=== PATIENT | male | born 1985 | race Caucasian/White ===

== ENCOUNTER 2024-12-20 11:00 | Emergency (ER) | payer BC, SELFPAY ==
--- OUTSIDE RECORDS SUMMARY | 2024-12-20 11:06 | XMS_ITS | Continuity of Care Document ---
Demographics Address [address] [place] [id number] Work Phone Mobile Phone Home Phone Email Address m Preferred Language en Marital Status Restoration Affiliation Unknown Race White Ethnic Group or Author Organization [facility] Address [address] [place] [address] Phone Care Team Providers Care Senior Credit Analyst Name Role Phone Jeremie Griffith OD Unavailable Unavailable Allergies, Adverse Reactions, Alerts Substance Reaction Status Criticality No Known allergies Procedures Procedure Date Eye Exam, New Patient Refraction Eye Exam & Treatment Office/outpatient Visit, Est Office/outpatient Visit, New Advance Directives Directive Yes / No Effective Date File Name Resuscitation Not Answered N/A N/A Life Support Not Answered N/A N/A Intubation Not Answered N/A N/A Antibiotics Not Answered N/A N/A IV Fluid Support Not Answered N/A N/A Tube Feed Not Answered N/A N/A Other Directive N/A N/A WARNING:The information contained in this section is historical and is provided for information only and does not constitute a legal document or any assurance that the information is still accurate. Please verify the information with the mendoza of the legal document before using it for clinical purposes. Encounters Encounter Description Practice Location Reason(s) For Visit Diagnoses Date Provider Providers Copied on Encounter [facility], [address] [place] [address] [address], [place], [place], [id number], [place] tel:[phone] SEC Emil Veliz MYOPIAAMBLYOPIA NOS 1-201 4 Gladis Chao. [address] [facility], [address], [place], [place], [id number] , [place]. tel:[phone] Office/outpat ient Visit, [facility] [place], [address], [place], [place], [id number], tel: [phone] SEC Alan Boswell FB IN [address] Shabbir Dangelo. [address], [address], [place], [address], . tel: [phone] Office/outpat ient Visit, [facility] [place] [place], [address], [place], [place], [id number], tel: [phone] SEC Emil Veliz FB [address] Shabbir Dangelo. [address], [address], [place], [address], . tel: [phone] Family History Family Member Type Diagnosis Age At Onset No Information Payers Payer name Insurance type Covered democrat ID Authortristona danielito(s) [facility] [id number] Social History Type Description Quantity Date Captured Comments Alcohol Use Details Caffeine Use Details Tobacco Use Status No Information Smoking Status Never smoker Sex Male Chief Complaint And Reason For Visit No Information Reason For Referral Reason For Referral No Information History Of Present Illness Encounter Date Complaint History Of Prese nt Illness No Information Functional Status Date Functional Assessmen t No Information Instructions Date Instruction Additional Infor kaden - Return in 1 year Related to Se e impression: general plan General plan -MYOPIA -Amblyopia OD congenital ptosis OD - Advised to wear glasses with impact resistant lenses for protection.Given spec Rx Related to See impression: general plan - RTC as needed Related to See i mpression: general plan General plan -Foreig n body in the conjunctiva - No FB seen in conj. Discontinue gtts. BCL removed today. RTC as needed. Educational materials provided:about today's exam. Related to See impression: general plan - RTC in 1 day if no t better or Saturday for f/u. Related to See impression: general plan General plan -Foreig n body in the conjunctiva - Vertical eyelid scratches with FB. Left lid eversion - small particles. Double left lid eversion with DeMaris. Eye washed. Fornices superior swept with q-tip. BCL applied. Pt will begin using Polytrim 2-3 xs per day. RTC in 1 day if not better or Saturday for f/u. Educational materials provided:about today's exam. Related to See impression: general plan Assessments Type Assessment Date No Information Patient Care Teams Name Effective Dates (start - stop) Status Members No Information
--- OUTSIDE RECORDS SUMMARY | 2024-12-20 11:06 | XMS_ITS | Encounter Summary ---
Author Organization [facility] Address [address] [place] [address] Care Team Providers Care Pugger Helper Name Role Phone Gamaliel Monroy MD Primary Care Provider [phone] Encounter Details Date Type Department Care Team (Late st Contact Info) Description 12/01/2024 Results Follow-Up [facility] [address] [place] [address] Sandra Cardoza, MEDICAL GENETICIST [address] [place] [address] Hepatitis C antibody Blood, Hepatitis B surface antibody (immune status) Blood, Hepatitis B core antibody, total Blood, Additional followed-up results: 8 Social History Tobacco Use Types Packs/Day Years Used Date Smoking Tobacco: Never Smokeless Tobacco: Never Alcohol Use Standard Drinks/Week Comments Not Currently 0 (1 standard drink = 0.6 oz pur e alcohol) AUDIT-C Answer Date Recorded Q1: How often do you have a drink containing alc ohol? Monthly or less 03/05/2024 Q2: How many drinks containi ng alcohol do you have on a typical day when you are drinking? 1 or 2 03/05/2024 Q3: How often do you have si x or more drinks on one occasion? 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
--- OUTSIDE RECORDS SUMMARY | 2024-12-20 11:06 | XMS_ITS | Clinical Summary ---
[place] [facility] [place] [address] [facility] [place]to Address [address] [place] [address] Care Team Providers Care Vp Data Name Role Phone Gamaliel Monroy MD Primary Care Provider [phone] Allergies No known active allergies Medications triamcinolone (KENALOG) 0.1 % creamIndication s:Contact dermatitis due to poison shivani Apply topically 3 (three) times a day for 10 days 80 g 4 Active montelukast (SINGULAIR) 10 mg tabletIndicatio ns:Seasonal Allergic Rhinitis Take 1 tablet (10 mg total) by mouth nightly 90 tablet 1 4 03/24/20 25 Active acetaminophen (TYLENOL) 325 mg tablet Take 1 tablet (325 mg total) by mouth every 6 (six) hours as needed for pain Active gabapentin (NEURONTIN) 100 mg capsule Take 1 capsule (100 mg total) by mouth 3 (three) times a day 90 capsule 1 4 05/29/[address] (VOLTAREN) 75 mg EC tablet Take 1 tablet (75 mg total) by mouth 2 (two) times a day 60 tablet 1 4 05/29/20 25 Active tiZANidine (ZANAFLEX) 4 mg tablet Take 1 tablet (4 mg total) by mouth nightly as needed for muscle spasms 30 tablet 1 4 Active Active Problems Problem Noted Date Diagnosed Date Annual physical exam 11/25/2024 Assessment & Plan (11/25/2024 3:52 PM CDT): Visit preventive in nature. Eat a healthy diet: focus on lean meats and proteins, more fruits, vegetables and whole grains and low in sugars and fats. Limit red meat and avoid processed meat. Maintain a healthy weight; avoid being overweight. Aim for a normal body mass index (BMI) of 18.5-24.9. Help learning to eat healthier, we can set up appointment with assistant prosecuting attorney/display specialist. Have an active lifestyle, strive for 30 minutes of moderate exercise 5 times a week and strength or resistance training at least twice a week. Use broad-spectrum (UVA+UVB) sunscreen with SPF 30 or greater, is water resistant, limit time spent in the sun (10 am-4pm), wear hat, wear UV protective clothing, wear sunglasses. Never use a tanning bed. Skin that was irradiated may be more sensitive over your lifetime. Do not smoke or chew tobacco; participate in a smoking cessation program. Limit alcohol intake, 1 drink per day for a woman and 2 drinks per day for a man. Abnormal MRI 03/03/2024 Assessment & Plan (03/03/2024 12:24 PM CDT): Will have follow-up brain MRI to monitor stability assist. Consider referral to Neurology p.r.n.. Muscle strain 02/17/2024 Assessment & Plan (03/03/2024 12:22 PM CDT): Failing conservative measures. Recommend evaluation with urban redevelopment specialist. He is agreeable. Referral placed. Assessment & Plan (02/17/2024 1:35 PM CDT): Recommended continued stretching and [id number] exercises. Prescribed muscle relaxer, review medication scheduling side effects. Given the patient has concurrent poison shivani will prescribe prednisone taper. Denies any significant back pain, no bowel/ bladder disturbance. Patient to follow-up if no improvement. Seasonal allergic rhinitis due to pollen 022 Assessment & Plan (01/18/2022 5:12 PM CDT): Recommended patient use sinus irrigation and antihistamine nightly. May continue montelukast for now. Will notify if symptoms worsen or headaches occur with increased frequency. Will continue to monitor. Refused influenza vaccine 01/18/2022 Class 2 obesity due to exces s calories without serious comorbidity with body mass index (BMI) of 36.0 to 36.9 in adult 01/18/2022 Assessment & Plan (02/17/2024 1:36 PM CDT): Discussed healthy diet and importance of regular physical activity. Assessment & Plan (01/18/2022 5:12 PM CDT): Discussed healthy diet and importance of regular physical activity. Encounter for screening for lipid disorder 01/18 Assessment & Plan (02/17/2024 1:36 PM CDT): Will check cholesterol panel with labs. Assessment & Plan (01/18/2022 5:12 PM CDT): Will check fasting labs. Reviewed diet and exercise recommendations for healthy cholesterol. Contact dermatitis due to poison shivani 01/19/2019 Assessment & Plan (02/17/2024 1:35 PM CDT): Encouraged patient to wash items that may have come into contact with plan oils. Complete prednisone as prescribed, can use topical triamcinolone cream for itching. Resolved Problems Problem Noted Date Diagnosed Date Resolved Date Obesity (BMI 30-39.9) 01/19/20192021 Pharyngitis 08/20/2014 01/19/2019 Overview (10/11/2016): Pharyngitis Encounters Date Type Department Care Team Description 12/01/2024 Results Follow-Up [facility] [address] [place] [address] Sandra Cardoza, WASH TEST CHECKER Hepatitis C antibody Blood, Hepatitis B surface antibody (immune status) Blood, Hepatitis B core antibody, total Blood, Additional followed-up results: 8 11/25/2024 4:00 PM CDT Lab [facility] [address] [place] [address] Class 2 severe obesity due to excess calories with serious comorbidity and body mass index (BMI) of 37.0 to 37.9 in adult (HCC); Encounter for hepatitis C screening test for low risk patient; Need for hepatitis B screening test; Annual physical exam 11/25/2024 3:30 PM CDT [facility] [address] [address] Sandra Cardoza NP Annual physical exam (Primary Dx); Class 2 severe obesity due to excess calories with serious comorbidity and body mass index (BMI) of 37.0 to 37.9 in adult (HCC); Encounter for hepatitis C screening test for low risk patient; Need for hepatitis B screening test from Last 3 Months Immunizations Immunization Administration Dates Next Due Influenza, Unspecified 11/25/2024(Deferr ed: Patient Refused),11/25/2024(Deferred: Patient Refused),02/17/2024(Deferred: Patient Refused),04/07/2023(Deferred: Patient Refused),04/07/2023(Deferred: Patient Refused),04/07/2023(Deferred: Patient Refused),05/09/2022(Deferred: Patient Refused),04/07/2022(Deferred: Patient Refused),04/07/2021(Deferred: Patient Refused),04/07/2021(Deferred: Patient Refused),10/04/2020(Deferred: Patient Refused),07/20/2020(Deferred: Patient Refused),07/08/2020(Deferred: Patient Refused),07/08/2019(Deferred: Patient Refused),07/08/2019(Deferred: Patient Refused),07/08/2019(Deferred: Patient Refused),07/08/2019(Deferred: Patient Refused),07/08/2018(Deferred: Patient Refused) Pfizer SARS-CoV-2 Monovalent Vaccination (12+ Yrs) PURPLE 02/01/2021,12/29/2020 Tdap 01/19/2019 Surgical History Surgery Date Site/Laterality Comments OTHER SURGICAL HISTORY mole removed from neck GALLBLADDER SURGERY 07/08/2011 - 07/07/2012 CHOLECYSTECTOMY 2014? Medical History Medical History Date Comments Hx Other Medical cellulitis Contact dermatitis due to poison shivani 01/19/2019 GERD (gastroesophageal reflux disease) 2004 Sleep apnea Soon Family History Medical History Relation Name Comments ALS Father alice cause of Heart disease Father alice Hyperlipidemia Father alice Hyperlipidemi a; Hypertension Father alice Hypertension; Hypothyroidism Father alice Heart disease Father's Sister Breast cancer Mother Cancer Mother Hyperlipidemia Other 1 Family histor y of Hyperlipidemia; Hypertension Other 2 Family history of Hypertension; Relation Name Status Comments Father alice Father's Sister Mother Alive Other 1 Other 2 Sister Alive Social History Tobacco Use Types Packs/Day Years Used Date Smoking Tobacco: Never Smokeless Tobacco: Never Tobacco Cessation:Counseling Given: No Alcohol Use Standard Drinks/Week Comments Not Currently [...] on file 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 Gender Identity Not on file Sexual Orientation Not on file Occupation Industry Job Start Date Job End Date [employer] Not on file Not on file Not on ness e Obstetrics History Last Filed Vital Signs Vital Sign Reading Time Taken Comments Blood Pressure 112/80 11/25/2024 3:25 PM CDT Pulse 86 11/25/2024 3:25 PM CDT Temperature 36.8 C (98.2 F) 11/25/2024 3:25 PM CDT Respiratory Rate 18 11/25/2024 3:25 PM CDT Oxygen Saturation 98% 11/25/2024 3:25 PM CDT Inhaled Oxygen Concentration - - Weight 117.8 kg (259 lb 12.8 oz) 11/25/2024 3:25 PM CDT Height 177.8 cm (5' 10) 11/25/2024 3:25 PM CDT Body Mass Index 37.28 11/25/2024 3:25 PM CDT Plan of Treatment Health Maintenance Due Date Last Done Comments Covid-19 Vaccine ( season) 2024 02/01/2021, 12/29/2020 Influenza Vaccine (Season Ended) 2025 Depression Screening 11/25/2025 11/25/2024, 02/17/2024, 05/09/2022, Additional history exists Regular Well Visit/Exam 18-64 11/25/2025 11/25/2024, 01/24/2021, 01/26/2020, Additional history exists DTaP/Tdap/Td Vaccine (2 - Td or Tdap) 01/19/2029 01/19/2019 Hepatitis B Screening Completed 11/25/2024 Hepatitis C Screening Completed 11/25/2024 HPV Vaccines Aged Out No longer eligi ble based on patient's age to complete this topic Pneumococcal vaccine <65 Aged Out No longer eligible based on patient's age to complete this topic Varicella Vaccines Discontinued Procedures Procedure Name Priority Date/Time Associated Diagnosis Comments DIFFERENTIAL AUTO Routine 11/25/2024 8:1 7 PM CDT Class 2 severe obesity due to excess calories with serious comorbidity and body mass index (BMI) of 37.0 to 37.9 in adult (HCC) Encounter for hepatitis C screening test for low risk patient Need for hepatitis B screening test Annual physical exam CBC WITH AUTO DIFFERENTIAL Routine 11/25/2024 8:17 PM CDT Class 2 severe obesity due to excess calories with serious comorbidity and body mass index (BMI) of 37.0 to 37.9 in adult (HCC) Encounter for hepatitis C screening test for low risk patient Need for hepatitis B screening test Annual physical exam EGFR Routine 11/25/2024 3:57 PM CDT Class 2 severe obesity due to excess calories with serious comorbidity and body mass index (BMI) of 37.0 to 37.9 in adult (HCC) Encounter for hepatitis C screening test for low risk patient Need for hepatitis B screening test Annual physical exam COMPREHENSIVE METABOLIC PANEL Routine 11/25/2024 3:57 PM CDT Class 2 severe obesity due to excess calories with serious comorbidity and body mass index (BMI) of 37.0 to 37.9 in adult (HCC) Encounter for hepatitis C screening test for low risk patient Need for hepatitis B screening test Annual physical exam LIPID PANEL Routine 11/25/2024 3:57 PM CDT Class 2 severe obesity due to excess calories with serious comorbidity and body mass index (BMI) of 37.0 to 37.9 in adult (HCC) Encounter for hepatitis C screening test for low risk patient Need for hepatitis B screening test Annual physical exam THYROID FUNCTION CASCADE Routine 11/25/2024 3:57 PM CDT Class 2 severe obesity due to excess calories with serious comorbidity and body mass index (BMI) of 37.0 to 37.9 in adult (HCC) Encounter for hepatitis C screening test for low risk patient Need for hepatitis B screening test Annual physical exam HEMOGLOBIN A1C Routine 11/25/2024 3:57 PM CDT Class 2 severe obesity due to excess calories with serious comorbidity and body mass index (BMI) of 37.0 to 37.9 in adult (HCC) Encounter for hepatitis C screening test for low risk patient Need for hepatitis B screening test Annual physical exam HEPATITIS B SURFACE ANTIGEN Routine 11/25/2024 3:57 PM CDT Class 2 severe obesity due to excess calories with serious comorbidity and body mass index (BMI) of 37.0 to 37.9 in adult (HCC) Encounter for hepatitis C screening test for low risk patient Need for hepatitis B screening test Annual physical exam HEPATITIS B CORE ANTIBODY, TOTAL Routine 11/25/2024 3:57 PM CDT Class 2 severe obesity due to excess calories with serious comorbidity and body mass index (BMI) of 37.0 to 37.9 in adult (HCC) Encounter for hepatitis C screening test for low risk patient Need for hepatitis B screening test Annual physical exam HEPATITIS B SURFACE ANTIBODY (IMMUNE STATUS) Routine 11/25/2024 3:57 PM CDT Class 2 severe obesity due to excess calories with serious comorbidity and body mass index (BMI) of 37.0 to 37.9 in adult (HCC) Encounter for hepatitis C screening test for low risk patient Need for hepatitis B screening test Annual physical exam HEPATITIS C ANTIBODY Routine 11/25/2024 3:57 PM CDT Class 2 severe obesity due to excess calories with serious comorbidity and body mass index (BMI) of 37.0 to 37.9 in adult (HCC) Encounter for hepatitis C screening test for low risk patient Need for hepatitis B screening test Annual physical exam from Last 3 Months Results * Differential, auto (11/25/2024 8:17 PM CDT) Neutrophil abs 3.24 1.50 - 6.50 K/cumm Comment:Testing performed by : [address], [address] Imm gran abs 0.03 0.00 - 0.10 K/cumm [facility] ([place]) Comment:Testing performed by : [address], [address] Lymphocyte abs 2.54 0.80 - 3.30 K/cumm [facility] ([place]) Comment:Testing performed by : [address], [address] Monocyte abs 0.45 0.20 - 0.80 K/cumm [facility] ([place]) Comment:Testing performed by : [address], [address] Eosinophil abs 0.21 0.00 - 0.50 K/cumm [facility] ([place]) Comment:Testing performed by : [address], [address] Basophil abs 0.07 0.00 - 0.10 K/cumm [facility] ([place]) Comment:Testing performed by : [address], [address] Neutrophil pct 49.5 % [facility] ([place]) Comment: Interpretive Data Percent cell count reference ranges are not reported, since discordance with absolute values may lead to misinterpretation of CBC data. Current Interpretive Data was last revised on 2017. Testing performed by: [address], [address] Imm gran pct 0.5 % [facility] ([place]) Comment: Interpretive Data Percent cell count reference ranges are not reported, since discordance with absolute values may lead to misinterpretation of CBC data. Current Interpretive Data was last revised on 2017. Testing performed by: [address] [address] Lymphocyte pct 38.8 % [facility] ([place]) Comment: Interpretive Data Percent cell count reference ranges are not reported, since discordance with absolute values may lead to misinterpretation of CBC data. Current Interpretive Data was last revised on 2017. Testing performed by: [facility], [address] [place] [address]., [address] Monocyte pct 6.9 % [facility] ([place]) Comment: Interpretive Data Percent cell count reference ranges are not reported, since discordance with absolute values may lead to misinterpretation of CBC data. Current Interpretive Data was last revised on 2017. Testing performed by: [address], [address] Eosinophil pct 3.2 % [facility] ([place]) Comment: Interpretive Data Percent cell count reference ranges are not reported, since discordance with absolute values may lead to misinterpretation of CBC data. Current Interpretive Data was last revised on 2017. Testing performed by: [address] [address] Basophil pct 1.1 % [facility] ([place]) Comment: Interpretive Data Percent cell count reference ranges are not reported, since discordance with absolute values may lead to misinterpretation of CBC data. Current Interpretive Data was last revised on 2017. Testing performed by: [address] [address] Blood 11/25/2024 8:17 PM CDT 11/25/2024 8:17 PM CDT us Sandra Cardoza WASH TEST CHECKER LAB BLOOD ORDERABLES Final Result [facility] ([place]) 1 [facility] Department [place] [address] * CBC with auto differential (11/25/2024 8:17 PM CDT) WBC 6.54 3.80 - 9.90 K/cumm Comment:Testing performed by : [facility], [address] [place] [address], [address] Hgb 13.9 13.0 - 17.5 g/dL [facility] ([place]) Comment:Testing performed by : [address], [address] Hct 41.7 38.9 - 50.3 % [facility] ([place]) Comment:Testing performed by : [facility], [address] [place] [address], [address] Plt 251 150 - 400 K/cumm [facility] ([place]) Comment:Testing performed by : [address], [address] MPV 11.2 9.1 - 12.3 fL [facility] ([place]) Comment:Testing performed by : [address], [address] RBC 4.92 4.30 - 5.80 M/cumm [facility] ([place]) Comment:Testing performed by : [address], [address] MCV 84.8 81.3 - 96.4 fL [facility] ([place]) Comment:Testing performed by : [address], [address] MCH 28.3 27.1 - 33.3 pg [facility] ([place]) Comment:Testing performed by : [address], [address] MCHC 33.3 32.3 - 35.7 g/dL [facility] ([place]) Comment:Testing performed by : [address], [address] RDW CV 12.8 11.1 - 14.9 % [facility] ([place]) Comment:Testing performed by : [address], [address] RDW SD 39.1 35.7 - 48.1 fL [facility] ([place]) Comment:Testing performed by : [address], [address] NRBC abs 0.00 0.00 - 0.01 K/cumm [facility] ([place]) Comment:Testing performed by : [facility], [address] [place] [address]., [address] Blood 11/25/2024 8:17 PM CDT 11/25/2024 8:17 PM CDT Sandra Cardoza NP LAB BLOOD ORDERABLES Final Result [facility] ([place]) 1 [facility] [place] [address] * eGFR (11/25/2024 3:57 PM CDT) eGFR >90 >=60 mL/min/1. 73 m2 Comment: Interpretive Data Reference Interval Normal >/= 90 mL/min/1.73m2 Mildly decreased* 60 - 89 mL/min/1.73m2 Mildly to moderately decreased 45 - 59 mL/min/1.73m2 Moderately to severely decreased 30 - 44 mL/min/1.73m2 Severely decreased 15 - 29 mL/min/1.73m2 Kidney Failure < 15 mL/min/1.73m2 *Relative to young adult level Estimated glomerular filtration rate is determined by the 2020 CKD-EPI equation recommended by the National Kidney Foundation (A Unifying Approach to GFR Estimation: Recommendations of the NKF-ASK Task Force on Reassessing the Inclusion of Race in Diagnosing Kidney Disease, JASN 2020). The CKD-EPI equation should not be used for patients with unstable renal function and has not been validated in children and those over 70. Current interpretive data was last reviewed 2021. Testing performed by: [facility], [address] [place] [address]., [address] Blood 11/25/2024 3:57 PM CDT 11/25/2024 8:17 PM CDT us Sandra Cardoza NP LAB BLOOD ORDERABLES Final Result [facility] ([place]) 1 [facility] [place] [address] * Thyroid Function Universal (11/25/2024 3:57 PM CDT) TSH 1.08 0.30 - 4.20 mcIUnit/mL Comment:Testing performed by : [facility], [address] [place] [address]., [address] Blood 11/25/2024 3:57 PM CDT 11/25/2024 8:12 PM CDT Sandra Cardoza NP LAB BLOOD ORDERABLES Final Result [facility] ([place]) 1 [facility] [place] [address] * Hepatitis C antibody Blood (11/25/2024 3:57 PM CDT) Pathologist [facility] Hep C Ab Nonreactive Nonreactive Comment: Interpretive Data Nonreactive: Antibodies to HCV not detected. Does NOT exclude the possibility of recent exposure to HCV. Equivocal: Equivocal for HCV antibodies. Supplemental molecular testing will be automatically performed to determine infection status in accordance with current CDC screening recommendations. Reactive: Positive for HCV antibodies. This may represent current or past HCV infection. Supplemental molecular testing will be automatically performed to determine current infection status in accordance with current CDC screening recommendations. Interpretive data was last revised on 2019. Testing performed by: [facility], [address] [place] [address]., [address] Blood 11/25/2024 3:57 PM CDT 11/25/2024 8:12 PM CDT Sandra Cardoza NP LAB MICROBIOLOGY - GENERAL ORDERABLES Final Result [facility] ([place]) 1 [facility] [place] [address] * Hepatitis B core antibody, total Blood (11/25/2024 3:57 PM CDT) Pathologist [facility] Hep B core IgG/IgM Nonreactive Nonreactive Comment:Testing performed by : [facility], [address] [place]., [address] Blood 11/25/2024 3:57 PM CDT 11/26/2024 4:43 PM CDT Sandra Cardoza NP LAB MICROBIOLOGY - GENERAL ORDERABLES Final Result [facility] ([place]) [address] [place] [address] * Hepatitis B surface antibody (immune status) Blood (11/25/2024 3:57 PM CDT) HBsAb (immune status) Nonreactive Comment: Interpretive Data Nonreactive: This result is consistent with a lack of immunity to Hepatitis B Virus when used in the setting of routine screening. Equivocal: The immune status of the individual should be further assessed, if appropriate, after consideration of clinical status, risk factors, and additional diagnostic information. Reactive: This result is consistent with immunity to Hepatitis B Virus when used in the setting of routine screening. Current interpretive data was last revised on 19. Testing performed by: [address] [address] Blood 11/25/2024 3:57 PM CDT 11/25/2024 8:12 PM CDT us Sandra Cardoza NP LAB MICROBIOLOGY - GENERAL ORDERABLES Final Result Performing Organization Address City/[facility]/ZIP Co de Phone Number [facility] ([place]) [address] [place] [address] * Hepatitis B Surface Antigen Blood (11/25/2024 3:57 PM CDT) HepBsAg Nonreactive Nonreactive Comment:Testing performed by : [address] [address] Blood 11/25/2024 3:57 PM CDT 11/25/2024 8:12 PM CDT us Sandra Cardoza NP LAB MICROBIOLOGY - GENERAL ORDERABLES Final Result [facility] ([place]) [address] [place] [address] * Hemoglobin A1c (11/25/2024 3:57 PM CDT) Pathologist [facility] Hgb A1C 5.5 4.0 - 5.6 % Comment:Testing performed by : [address] [address] Estimated Average Glucose 111 mg/dL [facility] ([place]) Comment: The ADA recommends reporting an estimated Average Glucose (eAG) with all Hemoglobin A1c results using the equation derived from a study of 507 normal and diabetic adults. Minority populations were underrepresented and children were not included. (Diabetes Care 31:5490-2709, 2008). The eAG is not equivalent to a fasting glucose. Testing performed by: [address], [address] Blood 11/25/2024 3:57 PM CDT 11/25/2024 8:12 PM CDT Sandra Cardoza NP LAB BLOOD ORDERABLES Final Result Performing Organization Address [facility] Co de Phone Number [facility] ([place]) [address] [place] [address] * (ABNORMAL) Lipid panel (11/25/2024 3:57 PM CDT) [facility] Cholesterol 202(H) 30 - 199 mg/dL Comment: Interpretive Data Ages < or = 19 years Acceptable: <170 mg/dL Borderline high: 170-199 mg/dL High: >or= 200 mg/dL Ages > or = 20 years Desirable: <200 mg/dL Borderline high: 200-239 mg/dL High: >or= 240 mg/dL Literature References: 1. Expert Panel on Integrated Guidelines for Cardiovascular Health and Risk Reduction in Children and Adolescents. Pediatrics 2011;128:S213 2. NCEP Expert Panel. Circulation 2004;110:227 Current Interpretive Data was last revised on 2018. Testing performed by: [address] [place]., [address] Triglycerides 335(H) <=149 mg/dL [facility] ([place]) Comment: Interpretive Data Ages < or = 9 years Acceptable: <75 mg/dL Borderline high: 75-99 mg/dL High: >or= 100 mg/dL Ages 10 to 20 years Acceptable: <90 mg/dL Borderline high: 90-129 mg/dL High: >or= 130 mg/dL Ages > or = 20 years Desirable: <150 mg/dL Borderline high: 150-199 mg/dL High: 200-499 mg/dL Very high: >or= 499 mg/dL Literature References: 1. Expert Panel on Integrated Guidelines for Cardiovascular Health and Risk Reduction in Children and Adolescents. Pediatrics 2011;128:S213 2. NCEP Expert Panel. Circulation 2004;110:227 Current Interpretive Data was last revised on 2018. Testing performed by: [facility], [address] [place] [address]., [address] HDL 32(L) >=40 mg/dL [facility] ([place]) Comment: Interpretive Data Ages < or = 19 years Acceptable: >45 mg/dL Borderline low: 40-45 mg/dL Low: <40 mg/dL Ages > or = 20 years Desirable: >or= 60 mg/dL Low: <40 mg/dL Literature References: 1. Expert Panel on Integrated Guidelines for Cardiovascular Health and Risk Reduction in Children and Adolescents. Pediatrics 2011;128:S213 2. NCEP Expert Panel. Circulation 2004;110:227 Current Interpretive Data was last revised on 2018. Testing performed by: [facility], [address] [place] [address]., [address] LDL, calculated 112 <=129 mg/dL [facility] ([place]) Comment: Interpretive Data Ages < or = 19 years Acceptable: <110 mg/dL Borderline high: 110-129 mg/dL High: >or= 130 mg/dL Ages > or = 20 years Optimal: <100 mg/dL Near optimal: 100-129 mg/dL Borderline high: 130-159 mg/dL High: >160 mg/dL Calculated using the Poe LDL-C estimating equation. This equation was implemented on 2024. Prior to this date LDL-C was estimated using the Friedewald equation. Literature References: 1. Expert Panel on Integrated Guidelines for Cardiovascular Health and Risk Reduction in Children and Adolescents. Pediatrics 2011;128:S213 2. NCEP Expert Panel. Circulation 2004;110:227 3. Lui M et al. SONI Cardiol. 2020 November 05;5(5):540-548. doi: 10.1001/jamacardio.2020.0013 Current Interpretive Data was last revised on 2024. Testing performed by: [facility], [address] [place] [address]., [address] Non-HDL Cholesterol 170 mg/dL STEPHANIE VARGAS ([place]) Comment: Interpretive Data Ages < or = 19 years Acceptable: <120 mg/dL Borderline high: 120-144 mg/dL High: >145 mg/dL Ages > or = 20 years When triglycerides are >200 mg/dL, Non-HDL cholesterol is a secondary target of therapy with treatment goals that are 30 mg/dL greater than the LDL cholesterol target. Literature References: 1. Expert Panel on Integrated Guidelines for Cardiovascular Health and Risk Reduction in Children and Adolescents. Pediatrics 2011;128:S213 2. NCEP Expert Panel. Circulation 2004;110:227 Current Interpretive Data was last revised on 2018. Testing performed by: [facility], [address] [place] [address]., [address] Chol/HDL ratio 6 DENA VARGAS ([place]) Comment:Testing performed by : [facility], [address] [place] [address]., [address] Blood 11/25/2024 3:57 PM CDT 11/25/2024 8:12 PM CDT Sandra Cardoza NP LAB BLOOD ORDERABLES Final Result STEPHANIE VARGAS ([place]) 1 [facility] Department [place] [address] * Comprehensive metabolic panel (11/25/2024 3:57 PM CDT) Sodium 140 135 - 145 mmol/L Comment:Testing performed by : [address] [address] Potassium, pl 4.3 3.3 - 4.9 mmol/L [facility] ([place]) Comment:Testing performed by : [facility], [address] [place] [address]., [address] Chloride 103 97 - 110 mmol/L [facility] ([place]) Comment:Testing performed by : [facility], [address] [place] [address]., [address] CO2 25 22 - 32 mmol/L [facility] ([place]) Comment:Testing performed by : [address], [address] Anion gap 12 2 - 15 mmol/L [facility] ([place]) Comment:Testing performed by : [address], [address] BUN 14 6 - 25 mg/dL [facility] ([place]) Comment:Testing performed by : [address], [address] Creatinine 0.98 0.80 - 1.30 mg/dL [facility] ([place]) Comment:Testing performed by : [address], [address] Glucose 90 70 - 199 mg/dL [facility] ([place]) Comment: Interpretive Data Fasting glucose >/= 126 mg/dl is diagnostic for diabetes. Fasting is defined as no caloric intake for at least 8 hours. Fasting glucose between 100 mg/dl to 125 mg/dl is diagnostic of prediabetes. In a patient with classic symptoms of hyperglycemia or hyperglycemic crisis, a random glucose >/= 200 mg/dl is diagnostic for diabetes. In the absence of unequivocal hyperglycemia, results should be confirmed by repeat testing. The classification and Diagnosis of Diabetes Diabetes Care 2021; 46: S19-S40. Current interpretive data was last revised 2022. Testing performed by: [address] [address] Calcium 9.8 8.5 - 10.3 mg/dL [facility] ([place]) Comment:Testing performed by : [address] [address] Bilirubin, total 0.4 0.1 - 1.2 mg/dL [facility] ([place]) Comment:Testing performed by : [address], [address] Protein, pl 7.5 6.5 - 8.5 g/dL [facility] ([place]) Comment:Testing performed by : [facility], [address] [place] [address]., [address] Albumin 4.6 3.5 - 5.0 g/dL [facility] ([place]) Comment:Testing performed by : [facility], [address] [place] [address]., [address] Alk phos 57 40 - 130 Units/L [facility] ([place]) Comment:Testing performed by : [facility], [address] [place] [address], [address] ALT 46 7 - 55 Units/L [facility] ([place]) Comment:Testing performed by : [facility], [address] [place] [address], [address] AST 35 10 - 50 Units/L [facility] ([place]) Comment:Testing performed by : [facility], [address] [place] [address], [address] Blood 11/25/2024 3:57 PM CDT 11/25/2024 8:12 PM CDT Sandra Cardoza NP LAB BLOOD ORDERABLES Final Result [facility] ([place]) 1 [facility] Department [place] [address] from Last [address] [place] [address] [employer] [facility] [employer] [place] [employer] [place] Care Teams Vp Data Relationship Specialty Start Date End Date [place] [address] PCP - General Family Medicine 01/19/19
--- OUTSIDE RECORDS SUMMARY | 2024-12-20 11:06 | XMS_ITS | Referral Summary ---
Author Organization [facility] lto Address [address] [place] [address] Care Team Providers Care Sky Line Yarder Name Role Phone Gamaliel Monroy MD Primary Care Provider [phone] Encounters Date Type Department Care Team Description 12/01/2024 Results Follow-Up [facility] [address] [place] [address] Sandra Cardoza NP Hepatitis C antibody Blood, Hepatitis B surface antibody (immune status) Blood, Hepatitis B core antibody, total Blood, Additional followed-up results: 8 11/25/2024 4:00 PM CDT Lab [facility] [address] [place] [address] Class 2 severe obesity due to excess calories with serious comorbidity and body mass index (BMI) of 37.0 to 37.9 in adult (HCC); Encounter for hepatitis C screening test for low risk patient; Need for hepatitis B screening test; Annual physical exam 11/25/2024 3:30 PM CDT Office Visit [facility] [address] [place] [address] Sandra Cardoza NP Annual physical exam (Primary Dx); Class 2 severe obesity due to excess calories with serious comorbidity and body mass index (BMI) of 37.0 to 37.9 in adult (HCC); Encounter for hepatitis C screening test for low risk patient; Need for hepatitis B screening test from Last 3 Months Allergies No known active allergies Medications triamcinolone [...] healthier, we can set up appointment with senior technical trainer/account resolution specialist. Have an active lifestyle, strive for [...] CDT): Failing conservative measures. Recommend evaluation with child support specialist. He is agreeable. Referral placed. Assessment & Plan (02/17/2024 1:35 PM CDT): Recommended continued stretching and [id number] exercises. Prescribed muscle relaxer, review medication scheduling [...] 01/19/20192021 Pharyngitis 08/20/2014 01/19/2019 Overview (10/11/2016): Pharyngitis Immunizations Immunization Administration Dates Next Due Influenza, Unspecified 11/25/2024(Deferr ed: Patient Refused),11/25/2024(Deferred: Patient Refused),02/17/2024(Deferred: Patient Refused),04/07/2023(Deferred: Patient Refused),04/07/2023(Deferred: Patient Refused),04/07/2023(Deferred: Patient Refused),05/09/2022(Deferred: Patient Refused),04/07/2022(Deferred: Patient Refused),04/07/2021(Deferred: Patient Refused),04/07/2021(Deferred: Patient Refused),10/04/2020(Deferred: Patient Refused),07/20/2020(Deferred: Patient Refused),07/08/2020(Deferred: Patient Refused),07/08/2019(Deferred: Patient Refused),07/08/2019(Deferred: Patient Refused),07/08/2019(Deferred: Patient Refused),07/08/2019(Deferred: Patient Refused),07/08/2018(Deferred: Patient Refused) Pfizer SARS-CoV-2 Monovalent Vaccination (12+ Yrs) PURPLE 02/01/2021,12/29/2020 Tdap 01/19/2019 Social History Tobacco Use Types Packs/Day Years [...] on file Legal Sex 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 Gender Identity Not on file Sexual Orientation Not on file 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 Not on file Not on ness e Last Filed Vital Signs Vital Sign Reading [...] 11/25/2024 3:25 PM CDT Plan of Treatment Not on file Procedures Procedure Name Priority Date/Time Associated Diagnosis [...] - 6.50 K/cumm Comment:Testing performed by : [facility], [address] [place] [address]., [address] Imm gran abs 0.03 0.00 - 0.10 K/cumm [facility] ([place]) Comment:Testing performed by : [facility], [address] [place] [address]., [address] Lymphocyte abs 2.54 0.80 - 3.30 K/cumm [facility] ([place]) Comment:Testing performed by : [facility], [address] [place] [address]., [address] Monocyte abs 0.45 0.20 - 0.80 K/cumm [facility] ([place]) Comment:Testing performed by : [facility], [address] [place] [address]., [address] Eosinophil abs 0.21 0.00 - 0.50 K/cumm [facility] ([place]) Comment:Testing performed by : [address] [address] Basophil abs 0.07 0.00 - 0.10 K/cumm [facility] ([place]) Comment:Testing performed by : [address] [address] Neutrophil pct 49.5 % [facility] ([place]) Comment: Interpretive Data Percent cell count reference ranges are not reported, since discordance with absolute values may lead to misinterpretation of CBC data. Current Interpretive Data was last revised on 2017. Testing performed by: [address], [address] Imm gran pct 0.5 % [facility] ([place]) Comment: Interpretive Data Percent cell count reference ranges are not reported, since discordance with absolute values may lead to misinterpretation of CBC data. Current Interpretive Data was last revised on 2017. Testing performed by: [address], [address] Lymphocyte pct 38.8 % [facility] ([place]) Comment: Interpretive Data Percent cell count reference ranges are not reported, since discordance with absolute values may lead to misinterpretation of CBC data. Current Interpretive Data was last revised on 2017. Testing performed by: [address] [address] Monocyte pct 6.9 % [facility] ([place]) Comment: Interpretive Data Percent cell count reference ranges are not reported, since discordance with absolute values may lead to misinterpretation of CBC data. Current Interpretive Data was last revised on 2017. Testing performed by: [address] [address] Eosinophil pct 3.2 % [facility] ([place]) Comment: Interpretive Data Percent cell count reference ranges are not reported, since discordance with absolute values may lead to misinterpretation of CBC data. Current Interpretive Data was last revised on 2017. Testing performed by: [address], [address] Basophil pct 1.1 % [facility] ([place]) Comment: Interpretive Data Percent cell count reference ranges are not reported, since discordance with absolute values may lead to misinterpretation of CBC data. Current Interpretive Data was last revised on 2017. Testing performed by: [address], [address] Blood 11/25/2024 8:17 PM CDT 11/25/2024 8:17 PM CDT Sandra Cardoza JOGGER OPERATOR LAB BLOOD ORDERABLES Final Result [facility] ([place]) 1 [facility] Department [place] [address] * CBC with auto differential (11/25/2024 8:17 PM CDT) WBC 6.54 3.80 - 9.90 K/cumm Comment:Testing performed by : [address], [address] Hgb 13.9 13.0 - 17.5 g/dL [facility] ([place]) Comment:Testing performed by : [address], [address] Hct 41.7 38.9 - 50.3 % [facility] ([place]) Comment:Testing performed by : [address], [address] Plt 251 150 - 400 K/cumm [facility] ([place]) Comment:Testing performed by : [address], [address] MPV 11.2 9.1 - 12.3 fL [facility] ([place]) Comment:Testing performed by : [address], [address] RBC 4.92 4.30 - 5.80 M/cumm [facility] ([place]) Comment:Testing performed by : [address], [address] MCV 84.8 81.3 - 96.4 fL [facility] ([place]) Comment:Testing performed by : [address], [address] MCH 28.3 27.1 - 33.3 pg [facility] ([place]) Comment:Testing performed by : [address], [address] MCHC 33.3 32.3 - 35.7 g/dL STEPHANIE VARGAS ([place]) Comment:Testing performed by : [facility], [address] [place] [address]., [address] RDW CV 12.8 11.1 - 14.9 % STEPHANIE VARGAS ([place]) Comment:Testing performed by : [facility], [address] [place] [address]., [address] RDW SD 39.1 35.7 - 48.1 fL STEPHANIE VARGAS ([place]) Comment:Testing performed by : [facility], [address] [place] [address]., [address] NRBC abs 0.00 0.00 - 0.01 K/cumm STEPHANIE VARGAS ([place]) Comment:Testing performed by : [facility], [address] [place] [address], [address] Blood 11/25/2024 8:17 PM CDT 11/25/2024 8:17 PM CDT Sandra Cardoza JOGGER OPERATOR LAB BLOOD ORDERABLES Final Result STEPHANIE SAM ([place]) 1 [facility] Department [place] [address] * eGFR (11/25/2024 3:57 PM CDT) eGFR [...] was last reviewed 2021. Testing performed by: [facility], [address] [place] [address]., [address] Blood 11/25/2024 3:57 PM CDT 11/25/2024 8:17 PM CDT Sandra Cardoza NP LAB BLOOD ORDERABLES Final Result Performing Organization Address City/[facility]/ZIP Co de Phone Number STEPHANIE Multani[place]) 1 [facility] [place] [address] * Thyroid Function Holt (11/25/2024 3:57 PM CDT) Pathologist [facility] TSH 1.08 0.30 - 4.20 mcIUnit/mL Comment:Testing performed by : [facility], [address] [place] [address]., [address] Blood 11/25/2024 3:57 PM CDT 11/25/2024 8:12 PM CDT Sandra Cardoza NP LAB BLOOD ORDERABLES Final Result Performing Organization Address [facility] Phone Number STEPHANIE VARGAS ([place]) [address] [place] [address] * Hepatitis C antibody Blood (11/25/2024 3:57 PM CDT) Pathologist [facility] Hep C Ab Nonreactive Nonreactive Comment: Interpretive [...] last revised on 2019. Testing performed by: [facility], [address] [place] [address]., [address] Blood 11/25/2024 3:57 PM CDT 11/25/2024 8:12 PM CDT Sandra Cardoza NP LAB MICROBIOLOGY - GENERAL ORDERABLES Final Result STEPHANIE VARGAS ([place]) 1 [facility] [place] [address] * Hepatitis B core antibody, total Blood (11/25/2024 3:57 PM CDT) Hep B core IgG/IgM Nonreactive Nonreactive Comment:Testing performed by : [facility], [address] [place] [address]., [address] Blood 11/25/2024 3:57 PM CDT 11/26/2024 4:43 PM CDT Sandra Cardoza NP LAB MICROBIOLOGY - GENERAL ORDERABLES Final Result Performing Organization Address [facility] Co de Phone Number STEPHANIE VARGAS ([place]) 1 [facility] [place] [address] * Hepatitis B surface antibody (immune status) Blood (11/25/2024 3:57 PM CDT) Pathologist [facility] HBsAb (immune status) Nonreactive Comment: Interpretive Data [...] last revised on 19. Testing performed by: [facility], [address] [place] [address], [place]., [address] Blood 11/25/2024 3:57 PM CDT 11/25/2024 8:12 PM CDT Sandra Cardoza NP LAB MICROBIOLOGY - GENERAL ORDERABLES Final Result STEPHANIE VARGAS ([place]) 1 [facility] Department [place] [address] * Hepatitis B Surface Antigen Blood (11/25/2024 3:57 PM CDT) [facility] HepBsAg Nonreactive Nonreactive Comment:Testing performed by : [facility], [address] [place] [address], [address] Blood 11/25/2024 3:57 PM CDT 11/25/2024 8:12 PM CDT Sandra Cardoza NP LAB MICROBIOLOGY - GENERAL ORDERABLES Final Result Performing Organization Address City/[facility]/ZIP Co de Phone Number STEPHANIE VARGAS ([place]) 1 [place] [address] * Hemoglobin A1c (11/25/2024 3:57 PM CDT) [facility] Hgb A1C 5.5 4.0 - 5.6 % Comment:Testing performed by : [facility], [address] [place] [address]., [address] Estimated Average Glucose 111 mg/dL STEPHANIE VARGAS ([place]) Comment: The ADA recommends reporting an estimated Average Glucose (eAG) with all Hemoglobin A1c results using the equation derived from a study of 507 normal and diabetic adults. Minority populations were underrepresented and children were not included. (Diabetes Care 31:3690-3800, 2008). The eAG is not equivalent to a fasting glucose. Testing performed by: [facility], [address] [place] [address]., [address] Blood 11/25/2024 3:57 PM CDT 11/25/2024 8:12 PM CDT Sandra Cardoza NP LAB BLOOD ORDERABLES Final Result STEPHANIE VARGAS ([place]) [address] [place] [address] * (ABNORMAL) Lipid panel (11/25/2024 3:57 PM CDT) Cholesterol 202(H) 30 - 199 mg/dL Comment: [...] last revised on 2018. Testing performed by: [facility], [address] [place] [address]., [address] Triglycerides 335(H) <=149 mg/dL STEPHANIE VARGAS ([place]) [...] last revised on 2018. Testing performed by: [facility], [address] [place] [address]., [address] HDL 32(L) >=40 mg/dL STEPHANIE VARGAS ([place]) [...] last revised on 2018. Testing performed by: [facility], [address] [place] [address]., [address] LDL, calculated 112 <=129 mg/dL STEPHANIE VARGAS ([place]) Comment: Interpretive Data Ages < or = 19 years Acceptable: <110 mg/dL Borderline high: 110-129 mg/dL High: >or= 130 mg/dL Ages > or = 20 years Optimal: <100 mg/dL Near optimal: 100-129 mg/dL Borderline high: 130-159 mg/dL High: >160 mg/dL Calculated using the Lui LDL-C estimating equation. This equation was implemented on 2024. Prior to this date LDL-C was estimated using the Friedewald equation. Literature References: 1. Expert Panel on Integrated Guidelines for Cardiovascular Health and Risk Reduction in Children and Adolescents. Pediatrics 2011;128:S213 2. NCEP Expert Panel. Circulation 2004;110:227 3. Lui Guerra et al. SONI Cardiol. 2020 November 05;5(5):540-548. doi: 10.1001/jamacardio.2020.0013 Current Interpretive Data was last revised on 2024. Testing performed by: [address] [address] Non-HDL Cholesterol 170 mg/dL STEPHANIE VARGAS ([place]) [...] last revised on 2018. Testing performed by: [address] [address] Chol/HDL ratio 6 DENA VARGAS ([place]) Comment:Testing performed by : [address] [address] Blood 11/25/2024 3:57 PM CDT 11/25/2024 8:12 PM CDT Sandra Cardoza NP LAB BLOOD ORDERABLES Final Result STEPHANIE VARGAS ([place]) 1 [facility] Department [place] [address] * Comprehensive metabolic panel (11/25/2024 3:57 PM CDT) Sodium 140 135 - 145 mmol/L Comment:Testing performed by : [address] [address] Potassium, pl 4.3 3.3 - 4.9 mmol/L [facility] ([place]) Comment:Testing performed by : [facility], [address] [place] [address]., [address] Chloride 103 97 - 110 mmol/L [facility] ([place]) Comment:Testing performed by : [address], [address] CO2 25 22 - 32 mmol/L [facility] ([place]) Comment:Testing performed by : [address] [address] Anion gap 12 2 - 15 mmol/L [facility] ([place]) Comment:Testing performed by : [address] [address] BUN 14 6 - 25 mg/dL [facility] ([place]) Comment:Testing performed by : [address], [address] Creatinine 0.98 0.80 - 1.30 mg/dL [facility] ([place]) Comment:Testing performed by : [address] [address] Glucose 90 70 - 199 mg/dL [facility] ([place]) Comment: Interpretive Data Fasting glucose [...] was last revised 2022. Testing performed by: [facility], [address] [place] [address]., [address] Calcium 9.8 8.5 - 10.3 mg/dL [facility] ([place]) Comment:Testing performed by : [facility], [address] [place] [address]., [address] Bilirubin, total 0.4 0.1 - 1.2 mg/dL [facility] ([place]) Comment:Testing performed by : [facility], [address] [place] [address]., [address] Protein, pl 7.5 6.5 - 8.5 g/dL [facility] ([place]) Comment:Testing performed by : [facility], [address] [place] [address], [address] Albumin 4.6 3.5 - 5.0 g/dL [facility] ([place]) Comment:Testing performed by : [facility], [address] [place] [address], [address] Alk phos 57 40 - 130 Units/L [facility] ([place]) Comment:Testing performed by : [facility], [address] [place] [address], [address] ALT 46 7 - 55 Units/L [facility] ([place]) Comment:Testing performed by : [facility], [address] [place] [address], [address] AST 35 10 - 50 Units/L [facility] ([place]) Comment:Testing performed by : [address], [address] Blood 11/25/2024 3:57 PM CDT 11/25/2024 8:12 PM CDT us Sandra Cardoza NP LAB BLOOD ORDERABLES Final Result [facility] ([place]) 1 [facility] Department [place] [address] from Last 3 Months Insurance BLUE ACCESS CHOICE [place] [employer] [place] [employer] [place] Care Teams Sky Line Yarder Relationship Specialty Start Date End Date Gamaliel Monroy MD [address] [place] [address] PCP - General Family Medicine 01/19/19
--- OUTSIDE RECORDS SUMMARY | 2024-12-20 11:11 | XMS_ITS | Continuity of Care Document ---
Demographics Address [address] [place] [address] Work Phone Mobile Phone Home Phone Email Address Preferred Language en Marital Status Rastafarian Affiliation Unknown Race White Ethnic Group or Author Organization [facility] [place] Address [address] [place] [address] Phone Care Team Providers Care Emergency Service Restorer Name Role Phone Jeremie Griffith OD Unavailable [...] Diagnoses Date Provider Providers Copied on Encounter [facility], [address] [place] [address] [address], [place], [place], [id number], [place] tel:[phone] SEC Emil Veliz MYOPIAAMBLYOPIA NOS 1-201 4 Gladis Chao. [address] [facility], [address], [place], [place], [id number] , [place]. tel:[phone] Office/outpat ient Visit, [facility], [address], [place], [place], [id number], tel: [phone] SEC Alan Boswell FB IN CONJUNCTIVAL SAC 4 Shabbir Dangelo. [address], [address], [place], [address], . tel: [phone] Office/outpat ient Visit, [facility], [address], [place], [place], [id number], tel: [phone] SEC Emil Veliz FB IN CONJUNCTIVAL SAC 4 Shabbir Dangelo. [address], [address], [place], [address], . tel: [phone] Family History Family Member Type Diagnosis Age At Onset No Information Payers Payer name Insurance type Covered republican ID Authortristona danielito(s) [facility] [id number] Social History Type Description Quantity Date Captured [...]
[2024-12-20 11:12] VITALS: BP 148/78; PULSE 83; RESP 20; TEMP 36.6; O2SAT 100
--- NOTE | 2024-12-20 11:31 | ED.WOUNDLAC ---
HPI - Wound/Laceration General Chief Complaint: Wound/Laceration Stated Complaint: wound on right leg Source: patient Mode of arrival: ambulatory Limitations: no limitations History of Present Illness HPI narrative: 39-year-old male presented for complaint of a laceration to the right vargas sustained 1 week ago. Says he was struck by a wooden 2x4 when it was kicked out from under a truck. Patient has been cleaning the site with soap and applying Neosporin with a gauze pad at night, and leaving the site open to the air during the day. Endorses there is redness and tenderness around the wound. No drainage. Related Data Allergies Allergy/AdvReac Type Severity Reaction Status Date / Time No Known Drug Allergies Allergy Unknown Verified 11/28/18 18:47 Review of Systems Review of Systems: CONSTITUTIONAL: Denies body aches, fever, chills, or sweats. EYES: Denies visual changes, redness, or discharge. ENT: Denies rhinorrhea, congestion CARDIOVASCULAR: Denies chest pain, palpitations, or edema. RESPIRATORY: Denies cough or dyspnea. GASTROINTESTINAL: Denies abdominal pain, nausea, vomiting, or diarrhea. SKIN: per HPI MUSCULOSKELETAL: Denies back pain, joint pain, or myalgia. NEUROLOGIC: Denies headache, numbness, tingling, or weakness. PMFSH Comments At time of signature, I have reviewed and agree with nursing past medical, surgical, social and family history unless otherwise noted. Please see nursing chart for further information. There is no relevant family history pertinent to the presenting complaint Exam Narrative: GENERAL: Well-appearing HEAD: Normocephalic, atraumatic. EYES: conjunctivae clear, and EOMI. ENT: Mucous membranes moist. Oropharynx without edema, erythema or lesions. NECK: Supple. No lymphadenopathy CHEST: Clear to auscultation. HEART: Regular rate and rhythm. SKIN: Warm, dry. laceration to right anterior vargas with 2.5x0.5cm dry yellow wound bed; surrounding erythema [id number]. Tender with palpation. NEURO: Alert and oriented x3. Course Course Emergency Course: Patient is aware of diagnosis, understands and agrees to treatment plan. Anticipatory guidance given. Patient agrees to follow-up as directed and is aware of reasons to seek care at the emergency department. Portions of this record may have been created with voice recognition software Level of Care: Express Care Visit Vital Signs Vital signs: Vital Signs Temperature 97.8 F 12/20/24 11:12 Pulse Rate 83 12/20/24 11:12 Respiratory Rate 20 12/20/24 11:12 Blood Pressure 148/78 H 12/20/24 11:12 Pulse Oximetry 100 12/20/24 11:12 Oxygen Delivery Room Air 12/20/24 11:12 Temperature 97.8 F 12/20/24 11:12 Pulse Rate 83 12/20/24 11:12 Respiratory Rate 20 12/20/24 11:12 Blood Pressure 148/78 H 12/20/24 11:12 Pulse Oximetry 100 12/20/24 11:12 Oxygen Delivery Room Air 12/20/24 11:12 Reviewed MDM - Wound/Laceration MDM Narrative Medical decision making narrative: Discussed physical exam findings. Advised supportive measures and signs/symptoms to go to the ER. Pt is appropriate for outpt treatment and f/u. Differential Diagnosis Differential diagnosis: Likely laceration, abrasion, avulsion of skin and other (cellulitis) Discharge Plan Discharge Clinical Impression: Laceration Patient Disposition: Home Condition: Stable Instructions: Antibiotic Form, Laceration (ED) Additional Instructions: Keep the area clean and dry - cleanse with warm water and mild soap and allow to fully dry. Ok to apply neosporin to the site at night Keep it open to air (no bandages) Take antibiotic as directed Watch for worsening symptoms including pain, redness, swelling, streaking, pus/drainage, fever. Go to the ER with any of these symptoms or concerns. Follow up with primary care provider in 1 week as needed. Patient Language: Serbian Prescriptions: New cephalexin 500 mg capsule 500 mg PO Q8H 5 Days Qty: 15 0RF Follow-up/Referrals: Harms,Gamaliel Armas M.D. [Primary Care Provider] - Time of Disposition: 11:37
== END 2024-12-20 11:42 | disposition home or self-care (01) ==
PROVIDERS: Emergency Provider Nurse Practitioner Family; PCP Family Medicine
DX: S81.811A Laceration without foreign body, right lower leg, initial encounter (principal); W22.8XXA Striking against or struck by other objects, initial encounter
CPT/HCPCS: 99203; G0463

== ENCOUNTER 2025-06-30 11:55 | Emergency (ER) | payer BC, MEDICAID, SELFPAY ==
--- OUTSIDE RECORDS SUMMARY | 2025-06-30 11:58 | XMS_ITS | Clinical Summary ---
Author [place] [facility] [place] [facility] [place] Address [address] [place] [address] Care Team Providers Care Drycleaner Name Role Phone Gamaliel Monroy MD Primary Care Provider [phone] Allergies No known active allergies Medications triamcinolone (KENALOG) 0.1 % creamIndication s:Contact dermatitis due to poison shivani Apply topically 3 (three) times a day for 10 days 80 g 4 Active montelukast (SINGULAIR) 10 mg tabletIndicatio ns:Seasonal Allergic Rhinitis Take 1 tablet (10 mg total) by mouth nightly 90 tablet 1 4 Active acetaminophen (TYLENOL) 325 mg tablet Take 1 tablet (325 mg total) by mouth every 6 (six) hours as needed for pain Active gabapentin (NEURONTIN) 100 mg capsule Take 1 capsule (100 mg total) by mouth 3 (three) times a day 90 capsule [address] (VOLTAREN) 75 mg EC tablet Take 1 tablet (75 mg total) by mouth 2 (two) times a day 60 tablet 1 4 Active tiZANidine (ZANAFLEX) 4 mg tablet Take [...] healthier, we can set up appointment with instrumentation fitter/support service tech. Have an active lifestyle, strive for 30 [...] CDT): Failing conservative measures. Recommend evaluation with refractory specialist. He is agreeable. Referral placed. Assessment & Plan (02/17/2024 1:35 PM CDT): Recommended continued stretching and [id number] exercises. 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 Not on file Not on file Not [...] Health Maintenance Due Date Last Done Comments HPV Vaccines (1 - 3-dose SCDM series) 09/29/2014 Covid-19 Vaccine ( - season) 2025 02/01/2021, 12/29/2020 Influenza Vaccine (#1) 2025 Depression Screening 11/25/2025 11/25/2024, 02/17/2024, 05/09/2022, Additional history exists Regular Well Visit/Exam 18-64 11/25/2025 11/25/2024, 01/24/2021, 01/26/2020, Additional history exists DTaP/Tdap/Td Vaccine (2 - Td or Tdap) 01/19/2029 01/19/2019 Hepatitis B Screening Completed 11/25/2024 Hepatitis C Screening Completed 11/25/2024 Pneumococcal vaccine <65 Aged Out No longer eligible based on patient's age to complete this topic Varicella Vaccines Discontinued Procedures Procedure Name Priority Date/Time Associated Diagnosis Comments HEPATITIS C ANTIBODY Routine 11/25/2024 3:57 PM CDT Class 2 severe obesity due to excess calories with serious comorbidity and body mass index (BMI) of 37.0 to 37.9 in adult (HCC) Encounter for hepatitis C screening test for low risk patient Need for hepatitis B screening test Annual physical exam from Last 3 Months or Most Recently Relevant to Health Maintenance Results * Hepatitis C antibody Blood (11/25/2024 3:57 PM CDT) Hep C Ab Nonreactive Nonreactive Comment: Interpretive [...] last revised on 2019. Testing performed by: [facility], [address] [place] [address], [place] [address] Blood 11/25/2024 3:57 PM CDT 11/25/2024 8:12 PM CDT Sandra Cardoza NP LAB MICROBIOLOGY - GENERAL ORDERABLES Final Result Performing Organization Address City/State/[facility] Co de Phone Number [facility] ([place]) [address] [facility] [place] [address] from Last 3 Months or Most Recently Relevant to Health Maintenance Insurance [address] [place] [employer] [facility] [place] Care Teams Drycleaner Relationship Specialty Start Date End Date [place] [id number] PCP - General Family Medicine 01/19/19
--- OUTSIDE RECORDS SUMMARY | 2025-06-30 11:58 | XMS_ITS | Clinical Summary ---
Author Organization [employer] Address [address] [place] [address] Care Team Providers Care Relay Tester Helper Name Role Phone No, Pcp TERADATA ARCHITECT Primary Care Provider Unavailabl e Social History Tobacco Use Types Packs/Day Years Used Date Smoking Tobacco: Never Assessed Sex and Gender Information Value Date Recorded Sex Assigned at Not on file Legal Sex Male 11:27 AM EDT Gender Identity Not on file Sexual Orientation Not on file Plan of Treatment Not on file Medical Devices [place] [address] [facility] Care Teams Relay Tester Helper Relationship Specialty Start Date End Date No, Pcp, TERADATA ARCHITECT N/A Do not use PCP - General Family Medicine 04/13/20
[2025-06-30 12:28] VITALS: BP 153/80; PULSE 95; RESP 20; TEMP 36.9; O2SAT 99
--- NOTE | 2025-06-30 13:46 | ED_ITS ---
HPI - URI/Sore Throat General Chief Complaint: Upper Respiratory Infection Stated Complaint: cough/headache/throat Time Seen by Provider: 06/30/25 13:46 Source: patient, RN notes reviewed and old records reviewed Mode of arrival: ambulatory Limitations: no limitations History of Present Illness HPI Narrative: 39 year old male presents to care with complaints of cough started yesterday and this morning has sore throat and chills with headache. Patient reports that he has taken Sudafed and aspirin for symptoms. Patient reports no know fevers has taken Sudafed and aspirin for his symptoms. Patient reports no one else in [facility]. MD elicited complaint: cough, sore throat and other (headache chills) Onset (ago): day(s) (yesterday with increased symptoms this am) Consistency: constant Pain scale (0-10): 7 Able to tolerate fluids by mouth: Yes Treatments prior to arrival: other (sudafed and aspirin) Related Data Home Medications ?Medication ?Instructions ?Recorded ?Confirmed ?Last Taken ?Type No Home Medications 06/30/25 06/30/25 U nknown History Allergies Allergy/AdvReac Type Severity Reaction Status Date / Time No Known Drug Allergies Allergy Unknown Other Verified 06/30/25 13:13 Review of Systems Review of Systems: CONSTITUTIONAL: Reports malaise,states chills, sweats, no known fevers EYES: Denies visual changes, redness, or discharge. ENT: Reports rhinorrhea, congestion, sinus pain, otalgia and + sore throat. CARDIOVASCULAR: Denies chest pain, palpitations, or edema. RESPIRATORY: Reports cough.? Denies dyspnea. GASTROINTESTINAL: Denies abdominal pain, nausea, vomiting, diarrhea SKIN: Denies rash or itching. MUSCULOSKELETAL: Denies myalgia. NEUROLOGIC: reports headache. All systems reviewed & are unremarkable except as noted in HPI and below PMFSH Surgical History Surgical History (Updated 07/01/25 @ 21:16 by Alma Mcgrath APRN) Hx of cholecystectomy Social History Social History (Updated 07/01/25 @ 21:16 by Alma Mcgrath APRN) Smoking status: Never smoker Alcohol intake: current Alcohol use details: social Substance use type: does not use Living arrangements: with family Gender identity (if verbalized by the patient): Male Comments At time of signature, agree with nursing past medical, surgical, social and family history. There is no relevant family history pertinent to the presenting complaint Exam Narrative: GENERAL: Well-appearing, well-nourished, and in no acute distress. HEAD: Normocephalic EYES: PERRLA, conjunctivae clear ENT: Nares clear, turbinates edematous and erythematous, clear discharge sinus pressure and headache,. Mucous membranes moist. TM pearly monk with dull light reflex bilaterally; no tragal tenderness. Oropharynx erythematous without lesions. Tonsils not enlarged and without exudate, no drooling, no hoarseness, no trismus, uvula midline.post nasal drainage noted NECK: Supple. No lymphadenopathy CHEST: Clear to auscultation, breath sounds equal. No wheezing, rhonchi, rales, or stridor. No respiratory distress, speaks in full sentences.cough SAO2 99% on room air HEART: Regular rate and rhythm. No murmur heard. SKIN: Warm, dry, no rash. NEURO: Alert and oriented x3. PSYCH: Normal mood and affect Course Course Level of Care: Express Care Visit Vital Signs Vital signs: Vital Signs Temperature 36.9 C 06/30/25 12:28 Pulse Rate 95 06/30/25 12:28 Respiratory Rate 20 06/30/25 12:28 Blood Pressure 153/80 H 06/30/25 12:28 Pulse Oximetry 99 06/30/25 12:28 Oxygen Delivery Room Air 06/30/25 12:28 Temperature 36.9 C 06/30/25 12:28 Pulse Rate 95 06/30/25 12:28 Respiratory Rate 20 06/30/25 12:28 Blood Pressure 153/80 H 06/30/25 12:28 Pulse Oximetry 99 06/30/25 12:28 Oxygen Delivery Room Air 06/30/25 12:28 reviewed MDM MDM Narrative Medical decision making narrative: 39year old male with complaints of cough yesterday with sore throat, headache, chills starting today with no fever noted.Patient tested negative for flu, COVID and strep with culture sent, recomend patient retest for flu and COVID tomorrow since symptoms less tht 24 hous.Advised supportive measures and signs/symptoms to go to the ER. Pt is appropriate for outpt treatment and f/u. Differential Diagnosis Differential Diagnosis: Differential diagnostic considerations for upper respiratory infection include upper respiratory infection, croup, otitis media, sinusitis, viral infection, bronchitis, influenza, pharyngitis, strep, uvulitis.? Lab Data Lab results narrative: Covid antigen negative, Influenza A& negative strep, screen negative culture sent Labs: Lab Results 06/30/25 Range/Units 13:30 POC Influenza A Ag Negative (Negative) POC Influenza B Ag Negative (Negative) POC SARS CoV-2 Ag Negative (Negative) POC Grp A Strep Screen Negative (Negative) reviewed Critical Care Time Critical Care Time Critical Care Time: No Discharge Plan Discharge Clinical Impression: Upper respiratory infection Qualifiers: URI type: unspecified URI Qualified Code(s): J06.9 - Acute upper respiratory infection, unspecified Patient Disposition: Home Condition: Stable Instructions: Antibiotic Form, Upper Respiratory Infection (ED) Additional Instructions: Increase fluids especially juices and water [id number] cough and cold medicine of your choice for your symptoms Zyrtec Claritin or Ness daily include Coricidin brand decongestant since her blood pressure is elevated 153/80 heat to the face 20-30 minutes 4-6 times a day for pain Salt water gargles, throat lozenges or throat sprays as desired monitor for any fevers check temperature every 6 hours Tylenol or ibuprofen for any fever or pain Your strep test today was negative. A throat culture will be sent to the laboratory for further testing. IF the test is positive, you will receive a phone call within 48 hours and an appropriate antibiotic will be initiated at that time. recommend retesting for COVID and flu tomorrow today's test may be invalid since symptoms have only been since yesterday Can buy a OTC test that has flu and COVID on it at pharmacy Patient Language: Tongan Prescriptions: No Action No Home Medications Follow-up/Referrals: Harms,Gamaliel Armas M.D. [Primary Care Provider] Time of Disposition: 14:01 Quality [place] Coma Scale Eyes: Open Verbal: Oriented and Alert Motor: Follows Commands [place] Coma Total Score: 15
[2025-06-30 14:12] LABS: EDCOVIDSCREEN Negative (Negative); EDINFLUASCREEN Negative (Negative); EDINFLUBSCREEN Negative (Negative); EDSTREPNEGPOS1 Negative (Negative)
== END 2025-06-30 14:05 | disposition home or self-care (01) ==
PROVIDERS: Emergency Provider Registered Nurse; PCP Family Medicine
DX: J06.9 Acute upper respiratory infection, unspecified (principal); Z20.822 Contact with and (suspected) exposure to COVID-19
CPT/HCPCS: 87081; 87426; 87804; 87880; 99213; G0463